=== PATIENT | male | born 1975 | race Caucasian/White ===

== ENCOUNTER 2020-06-18 17:21 | Emergency (ER) | payer BC, MEDICAID, SELFPAY ==
[2020-06-18 17:24] VITALS: BP 152/97; PULSE 93; RESP 17; TEMP 36.6; O2SAT 100; BMI 25.3
--- NOTE | 2020-06-18 17:25 | EKG12_ITS ---
Test Reason : CP Blood Pressure : / mmHG Vent. Rate : 084 BPM Atrial Rate : 084 BPM P-R Int : 156 ms QRS Dur : 092 ms QT Int : 364 ms P-R-T Axes : 053 053 047 degrees QTc Int : 430 ms Normal sinus rhythm with sinus arrhythmia Normal ECG Confirmed by JESSICA COOK, AHMET ([id number]), video effects editor ANABEL MATHEW ([id number]) on 06/20/2020 9:26:51 AM Referred By: PITER Confirmed By:AHMET LOPEZ MD
--- NOTE | 2020-06-18 17:26 | ED.VIS.GEN ---
History of Present Illness Chief Complaint: Chest Pain Informant: Patient Onset: Yesterday Context: Gradual Onset Timing: Intermittent Current Severity: Moderate Maximum Severity: Moderate Narrative: Patient is a 45-year-old male was otherwise healthy the presents to the emergency department multiple complaints. Patient said yesterday, he just felt generally ill. He states that he had some generalized fatigue and lack of energy. He states today, he felt like his heart was just jumping around. He had no vanna chest pain. He does admit to some mild shortness of breath. States he never felt like this before. He is otherwise been in his normal state of health. He is on no daily medications. He denies fever. He denies change in taste or smell. He had no nausea or vomiting. He is otherwise been in his normal state of health. Prior similar symptoms: No Recent Illness/Hospitalization: No Past Medical History - Allergies and Home Meds Allergies/Adverse Reactions: Allergies No Known Allergies Allergy (Verified 06/18/20 17:27) Primary Care Physician: Jalil Saenz DO [STAFF PHYSICIAN] - Prior records reviewed: Yes Past Medical History: None Surgical History: no surgical history, noncontributory Lives: With Family Review of Systems General: Reports: Malaise. Denies: Chills, Fever, Sweats Eyes: Denies: Visual changes - bilaterally, Diplopia ENT: Denies: Rhinorrhea, Sore throat Cardiovascular: Reports: Palpitations. Denies: Chest pain Respiratory: Reports: Dyspnea. Denies: Cough, Dyspnea on exertion Gastrointestinal: Denies: Abdominal pain, Nausea, Vomiting, Diarrhea, Melena, Hematochezia Genitourinary: Denies: Dysuria, Hematuria, Frequency Musculoskeletal: Denies: Back pain, Extremity Pain Skin: Denies: Rash, Wounds Neurological: Denies: Headache, Weakness, Numbness Physical Exam Vital Signs/Narrative: Vital Signs Temp Pulse Resp BP Pulse Ox 06/18/20 17:24 98 F 93 17 152/97 H 100 Inital Vital Signs reviewed: Yes General: Well nourished, Well developed, No Acute Distress Head: Normocephalic, Atraumatic Eyes: Perrl, EOMI ENT: Moist mucous membranes, No rhinorrhea Neck: Supple, Nontender Cardiovascular: Regular rate, Regular rhythm, No murmurs Respiratory: No distress, CTA bilaterally, Chest nontender Abdomen: Soft, Nontender, Nondistended, Normal bowel sounds Back: Nontender, Normal Inspection Extremities: Nontender, No edema Skin: Normal color, No rash Neurological: Alert, Oriented x3, Cranial nerves II-XII grossly intact, Normal Strength, Normal Sensation Psychological: Normal affect, Normal Mood Diagnostic/Tx/Re-eval Clinical Impression(s) from Imaging Studies Chest X-Ray 06/18/20 17:38 IMPRESSION: No acute pulmonary process Electronically Signed: Mir Suh MD at 18:04 EST , Service support , Abnormal Lab Results 06/18/20 06/18/20 06/18/20 17:30 17:30 17:30 WBC 9.9 RBC 5.59 Hgb 16.2 Hct 47.0 MCV 84.1 MCH 29.0 MCHC 34.5 RDW Std Deviation 35.3 RDW Coeff of Venkatesh 11.5 L Plt Count 309 MPV 10.2 Immature Gran % (Auto) 0.400 Neut % (Auto) 81.4 H Lymph % (Auto) 14.2 L Brewster % (Auto) 3.3 Eos % (Auto) 0.2 Baso % (Auto) 0.5 Absolute Neuts (auto) 8.1 H Absolute Lymphs (auto) 1.41 Nucleated RBC % 0 Sodium 141 Potassium 3.4 L Chloride 108 H Carbon Dioxide 23.0 Anion Gap 10 BUN 11 Creatinine 1.32 H Estim Creat Clear Calc 79.03 Est GFR (MDRD) Af Amer 75 Est GFR (MDRD) Non-Af 62 BUN/Creatinine Ratio 8.3 L Glucose 114 H Calcium 9.3 Total Bilirubin 0.70 AST 16 ALT 30 Alkaline Phosphatase 82 Troponin I < 0.015 B-Natriuretic Peptide 16.6 Total Protein 7.9 Albumin 4.3 Globulin 3.6 Albumin/Globulin Ratio 1.2 Lipase 86 - Rhythm Strip Rhythm Strip: Sinus Rhythm Rate: 80 Ectopy: None - EKG Initial EKG Interpretation: Sinus Rhythm, No Acute Injury Pattern Prior: No Prior - Medical Decision Making Patient presents with palpitations, general malaise, and the feeling of near syncope. EKG was obtained. Was sinus rhythm. There was normal axis and intervals. There is no acute ischemic change. IV was established. Patient was given fluids. Chest x-ray was obtained. Was reviewed by the radiologist myself. There was no infiltrative process, cardiomegaly, or other dangerous pathology. Cardiac enzymes were unremarkable. BNP was negative. Covid test was negative. At this point, I do not have a great explanation for the cause of his symptoms but I do not suspect a dangerous process. The patient was reassured. He is resting comfortably. At this point, I do feel that he is safe for outpatient follow-up. Impression 1. Near syncope 2. Palpitations ED Disposition - Plan for ED Patient: Instructions: ED Near-Fainting, Uncertain Cause Referrals: Jalil Saenz DO [STAFF PHYSICIAN] -
--- NOTE | 2020-06-18 17:38 | RAD_ITS ---
STUDY: X-RAY CHEST REASON FOR EXAM: Male, 45 years old. Chest pain, palpitations TECHNIQUE: 2 AP portable views COMPARISON: None. FINDINGS: EKG leads overlie the chest The lungs are clear and expanded. There is no demonstrated pleural abnormality. Normal size heart. Normal mediastinum and chris. Normal visualized pulmonary arteries. Normal visualized aortic arch and descending thoracic aorta. Normal visualized thoracic spine. Normal visualized ribs, clavicles, and shoulders. There is no demonstrated abnormality of the visualized soft tissue structures of the upper abdomen. RAD/Chest 1 View (Portable) IMPRESSION: No acute pulmonary process Electronically Signed: Mir Suh MD at 18:04 EST , Service support ,
[2020-06-18 17:45] LABS: Absolute Lymphocyte Count 1.41 X10^3/uL (0.83-4.51); Absolute Neutrophil Count 8.1 X10^3/uL (2.0-7.7); Basophil# 0.05 X10^3/uL; Basophil% 0.5 % (0-1); Eosinophil# 0.02 X10^3/uL; Eosinophils% 0.2 % (0-5); Hemoglobin 16.2 g/dL (13.0-16.5); Lymphocyte # 1.41 X10^3/ul (4.0); Lymphocyte % 14.2 % (19-41); Mean Corp Hgb Conc 34.5 g/dL (32-36); Mean Corpuscular Volume 84.1 fL (80-94); Mean Platelet Vol. 10.2 fl (6.2-12.0); Monocyte# 0.33 X10^3/uL; Monocyte% 3.3 % (0-10); NRBC Flagged by Analyzer 0 % (0-5); Neutrophil # 8.09 X10^3/uL (2.7-7.7); Neutrophil % 81.4 % (47-70); Platelet Count 309 K/mm3 (150-450); RBC Distribution Width CV 11.5 % (11.6-14.6); RBC Distribution Width SD 35.3 fl (35.1-43.9); Red Blood Count 5.59 M/mm3 (4.6-6.2); White Blood Count 9.9 K/mm3 (4.4-11.0)
[2020-06-18 18:00] LABS: ALB/GLOB Ratio 1.2 RATIO (0.9-2.4); AST(SGOT) 16 U/L (15-37); Alanine Aminotransfer ALT/SGPT 30 U/L (16-61); Albumin, Serum 4.3 g/dL (3.2-5.0); Alkaline Phosphatase 82 U/L (45-117); Anion Gap 10 (5-15); BUN 11 mg/dL (7-18); BUN/Creat Ratio 8.3 RATIO (10-20); Calcium,Total 9.3 mg/dL (8.5-10.1); Chloride 108 mmol/L (98-107); Creatinine, Serum 1.32 mg/dL (0.70-1.30); EST Glomerular Filtration Rate 62 mL/min (>60); Est Glom Filt Rate - Afr Amer 75 mL/min (>60); Estimated Creatinine Clearance 79.03 ml/min; Globulin 3.6 g/dL (2.2-4.2); Glucose 114 mg/dL (74-106); Lipase 86 U/L (73-393); Potassium 3.4 mmol/L (3.5-5.1); Protein, Total 7.9 g/dL (6.4-8.2); Sodium Level 141 mmol/L (136-145)
[2020-06-18 18:21] VITALS: BP 137/74; PULSE 81; RESP 16; O2SAT 98
[2020-06-18 18:25] LABS: BNP,B-Type NATRIURETIC PEPTIDE 16.6 pg/mL (0-100)
[2020-06-18 19:46] VITALS: BP 128/75; PULSE 71; RESP 14; O2SAT 98
== END 2020-06-18 19:47 | disposition home or self-care (01) ==
PROVIDERS: Emergency Provider Emergency Medicine
DX: R55 Syncope and collapse (principal); R00.2 Palpitations; R06.02 Shortness of breath
CPT/HCPCS: 71045; 80053; 83690; 83880; 84484; 85025; 87426; 93005; 99284; J7030; A4216